=== PATIENT | male | born 2000 | race Caucasian/White ===

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

== ENCOUNTER 2021-07-05 11:24 | Emergency (ER) | payer SELFPAY ==
--- NOTE | 2021-07-05 13:57 | ER ---
Nurse's Notes [facility] Name: Arnav Chaudhary Age: 21 yrs Sex: Male : 2000 Arrival Date: 07/05/2021 Time: 11:29 Bed 23 Private MD: Diagnosis: SARS-associated coronavirus as the cause of diseases classified elsewhere Presentation: 07/05 11:56 Chief complaint: Patient states: denies covid symptoms. Wants test due to son ap3 testing positive this morning. Coronavirus screen: At this time, the client does not indicate any symptoms associated with coronavirus-19. Ebola Screen: No symptoms or risks identified at this time. Initial Sepsis Screen: Does the patient meet any 2 criteria? No. Patient's initial sepsis screen is negative. Does the patient have a suspected source of infection? No. Patient's initial sepsis screen is negative. Risk Assessment: Do you want to hurt yourself or someone else? Patient reports no desire to harm self or others. Onset of symptoms. 11:56 Method Of Arrival: Ambulatory ap3 11:56 Acuity: ANNABEL 5 ap3 Triage Assessment: 11:57 General: Appears in no apparent distress. comfortable, Behavior is calm, cooperative, ap3 appropriate for age. Pain: Denies pain. Historical: - Allergies: 11:56 No Known Allergies; ap3 - Home Meds: 11:56 None [Active]; ap3 - PMHx: 11:56 None; ap3 - PSHx: 11:56 None; ap3 - Immunization history:: Client reports having NOT received the Covid vaccine. - Social history:: Smoking status: Patient reports the use of cigarette tobacco products, smokes one-half pack cigarettes per day. Screenin:59 Abuse screen: Denies threats or abuse. Nutritional screening: No deficits noted. ap3 Tuberculosis screening: No symptoms or risk factors identified. Fall Risk None identified. Assessment: 12:00 General: Appears in no apparent distress. Behavior is calm, cooperative. General: iw Reports feeling ill for. Neuro: Level of Consciousness is awake, alert, obeys commands, Oriented to person, place, time, situation, Moves all extremities. Cardiovascular: Patient's skin is warm and dry. Respiratory: Respiratory effort is even, unlabored, Respiratory pattern is regular. Derm: Skin is intact, is healthy with good turgor. Musculoskeletal: Range of motion:. Vital Signs: 12:20 BP 117 / 69; Pulse 74; Temp 98.5; Pulse Ox 97% on R/A; dh4 ED Course: 11:29 Patient arrived in ED. rg4 11:46 Syd Pierson PA is PHCP. cp 11:46 Syd Wang MD is Attending Physician. cp 11:47 Bisi Ludwig, RN is Primary Nurse. iw 11:56 Triage completed. ap3 11:59 Patient has correct armband on for positive identification. Door closed. Noise ap3 minimized. 11:59 Arm band placed on right wrist. ap3 14:13 No provider procedures requiring assistance completed. Patient did not have IV access iw during this emergency room visit. Administered Medications: No medications were administered Outcome: 13:56 Discharge ordered by MD. cp 14:13 Discharged to home ambulatory. iw 14:13 Condition: good 14:13 Discharge instructions given to patient, Instructed on discharge instructions, follow up and referral plans. Demonstrated understanding of instructions, follow-up care. 14:14 Patient left the ED. iw Signatures: Bisi Ludwig, RN RN iw Syd Pierson PA PA cp Garcia, Rubi rg4 Yolie Soliman RN RN 3 Carlos Gil 4
--- NOTE | 2021-07-05 13:57 | EDPHYS ---
Physician Documentation [facility] [place] [place] Name: Arnav Chaudhary Age: 21 yrs Sex: Male : 2000 Arrival Date: 07/05/2021 Time: 11:29 Bed 23 Private MD: ED Physician Syd Wang HPI: 07/05 12:05 This 21 yrs old Male presents to ER via Ambulatory with complaints of Covid Test. cp 12:05 requesting COVID-19 test. Reports son tested positive for COVID-19 this morning. cp No current symptoms. Historical: - Allergies: 11:56 No Known Allergies; ap3 - Home Meds: 11:56 None [Active]; ap3 - PMHx: 11:56 None; ap3 - PSHx: 11:56 None; ap3 - Immunization history:: Client reports having NOT received the Covid vaccine. - Social history:: Smoking status: Patient reports the use of cigarette tobacco products, smokes one-half pack cigarettes per day. ROS: 12:07 All other systems are negative. cp Exam: 12:07 Head/Face: Normocephalic, atraumatic. cp 12:07 Constitutional: The patient appears in no acute distress, alert, awake, non-toxic, well developed, well nourished. 12:07 Cardiovascular: Rate: normal. 12:07 Respiratory: the patient does not display signs of respiratory distress, Respirations: normal. 12:07 Abdomen/GI: Inspection: abdomen appears normal. Vital Signs: 12:20 BP 117 / 69; Pulse 74; Temp 98.5; Pulse Ox 97% on R/A; dh4 MDM: 11:47 Patient medically screened. pavan 12:10 Differential Diagnosis flu, COVID-19. cp 13:55 Data reviewed: vital signs, nurses notes, lab test result(s), and as a result, I will cp discharge patient. 13:55 Counseling: I had a detailed discussion with the patient and/or guardian regarding: the cp historical points, exam findings, and any diagnostic results supporting the discharge/admit diagnosis, to return to the emergency department if symptoms worsen or persist or if there are any questions or concerns that arise at home. ED course: VSS. Patient reports he is asymptomatic. COVID-19 test positive. Will discharge to home to quarantine with family. 07/05 11:57 Order name: SARS-COV-2 RT PCR (Document "Date of Onset" if Symptomatic); Complete Time: 13:50 07/05 13:50 Interpretation: Abnormal: SARSCOV2 RT PCR POSITIVE. cp Administered Medications: No medications were administered Disposition: 14:00 Chart complete. cp Disposition Summary: 07/05/21 13:56 Discharge Ordered Location: Home cp Problem: new cp Symptoms: are unchanged cp Condition: Stable cp Diagnosis - SARS-associated coronavirus as the cause of diseases classified elsewhere cp Followup: cp - With: Private Physician - When: 1 - 2 days - Reason: Worsening of condition Discharge Instructions: - Discharge Summary Sheet cp - COVID-19 cp - Things to Know about the COVID-19 Pandemic - [facility] cp - 10 Things You Can Do to Manage Your COVID-19 Symptoms at Home - [facility] cp - COVID-19: Quarantine vs. Isolation - [facility] cp - Prevent the Spread of COVID-19 if You Are Sick - [facility] cp Forms: - Medication Reconciliation Form cp - Thank You Letter cp - Antibiotic Education cp - Prescription Opioid Use cp Addendum: 07/12/2021 12:36 Co-signature as Attending Physician, Syd Wang MD I agree with the assessment and c zaman plan of care. Signatures: Dispatcher [employer] Syd Clemente MD MD cha Page, Corey PA PA Yolie Fernandez, RN RN ap3
[2021-07-05 14:18] VITALS: BP 117/69; TEMP 98.5; O2SAT 97
== END 2021-07-05 14:14 | disposition home or self-care (01) ==
LOC: ER 11:24
DX: U07.1 COVID-19 (principal); F17.210 Nicotine dependence, cigarettes, uncomplicated
CPT/HCPCS: 99281; U0003